=== PATIENT | male | born 1995 | race Caucasian/White ===

== ENCOUNTER 2016-07-31 01:26 | Inpatient (IN) ==
[2016-07-31] MEDS ORDERED: hydrOXYzine pamoate 25 MG CAPSULE PO PRN (01:34)
[2016-07-31] MEDS ORDERED: Haloperidol Lactate 5 MG/ML VIAL IM PRN (01:34)
[2016-07-31] MEDS ORDERED: *HR* LORazepam 1 MG TABLET PO PRN (01:34)
[2016-07-31] MEDS ORDERED: Acetaminophen 325 MG TABLET PO PRN (01:34)
[2016-07-31] MEDS ORDERED: Mag Hydrox/Al Hydrox/Simeth 30 ML UDC PO PRN (01:34)
[2016-07-31] MEDS ORDERED: MOM Conc 10 ML UD.LIQ PO PRN (01:34)
[2016-07-31] MEDS ORDERED: *HR* LORazepam 2 MG/ML VIAL IM PRN (01:34)
[2016-07-31] MEDS ORDERED: FLUoxetine 20 MG CAPSULE PO SCH (09:00)
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
[2016-07-31] MEDS: Gabapentin 300 MG CAPSULE PO SCH ×2 (15:17→20:10)
[2016-08-01] MEDS: FLUoxetine HCl 10 MG CAPSULE PO SCH (08:36)
[2016-08-01] MEDS: Gabapentin 300 MG CAPSULE PO SCH ×3 (08:36→21:11)
[2016-08-02] MEDS: Gabapentin 300 MG CAPSULE PO SCH ×3 (08:56→20:57)
[2016-08-02] MEDS: FLUoxetine HCl 10 MG CAPSULE PO SCH (08:56)
--- NOTE | 2016-08-02 10:34 | Psychiatry Progress Note ---
Date of Encounter: 08/01/16 Time of Encounter: 15:30 Subjective Interval history: Patient was seen for follow-up, nursing reports were reviewed. Patient is reported isolating, seclusive and concerned about seeing his daughter. He is reporting improved sleep some anxiety and denies suicidal ideation. He is tolerating medication and denies any side effects. Review of Systems Psychiatric: Reports: anxiety Objective: Exam Patient orientation: Yes Person, Yes Time, Yes Place Level of alertness: Alert Patient appearance: Appropriate, Well Groomed Behavior: calm, cooperative Psychomotor activity: Slowed Eye contact: Maintains Eye Contact Mood description: Depressed Affect description: constricted, dysphoric Speech pattern: Normal rate, Normal rhythm, Normal tone Speech volume: Soft/Quiet Thought process: Intact, Logical, [place] Perceptual disturbances: No Auditory hallucinations, No Visual hallucinations Judgment: Limited Insight: Minimal Results - Vital Signs Vital Signs: Temp Pulse Resp BP 98.0 F 65 16 118/62 08/02/16 09:00 08/02/16 09:00 08/02/16 09:00 08/02/16 09:00 Assessment and Plan (1) Depressive disorder Current visit: No Status: Chronic Plan: Continue hospitalization, Encourage participation in unit milieu, Group Therapy, Monitor sleep Risks, benefits, side effects, alternatives discussed w /pt: Yes Patient agreeable to treatment: Yes Consult Discharge Plan - Plan Referrals: [facility] [place] [Outside] - 08/05/16 8:00 am (The above appointment is with Gay Luke, psychiatric prescriber. Your case management rn, Shari Jensen, is out until the end of August. When you see Gay Luke on , you will be given a new case management rn to see until Shari returns to the office.)
--- NOTE | 2016-08-02 15:47 | Psychiatry Progress Note ---
Date of Encounter: 08/02/16 Time of Encounter: 14:30 Subjective Interval history: Patient was seen for follow-up, nursing staff reported she is doing well he denies suicidal ideation and auditory medications he continues to be concerned about not seeing his daughter and is planning to take action in order for him to see his daughter or have regular visitation. He is taking his medication as prescribed any side effects and believe it is very helpful. Review of Systems Psychiatric: Reports: anxiety, mood swings. Denies: suicidal ideation, auditory hallucinations Objective: Exam Patient orientation: Yes Person, Yes Time, Yes Place Level of alertness: Alert Patient appearance: Appropriate, Well Groomed Behavior: calm, cooperative, anxious Psychomotor activity: Normal Eye contact: Maintains Eye Contact Mood description: Depressed Affect description: constricted, dysphoric Speech pattern: Normal rate, Normal rhythm, Normal tone Speech volume: Soft/Quiet Thought process: Intact, Logical, [place] Thought content: No Suicidal ideation Perceptual disturbances: No Auditory hallucinations, No Visual hallucinations Judgment: Fair Insight: Partial Results - Vital Signs Vital Signs: Temp Pulse Resp BP 98.0 F 65 16 118/62 08/02/16 09:00 08/02/16 09:00 08/02/16 09:00 08/02/16 09:00 Assessment and Plan (1) Depressive disorder Current visit: No Status: Acute Plan: Continue hospitalization, Encourage participation in unit milieu, Group Therapy, Monitor sleep Risks, benefits, side effects, alternatives discussed w /pt: Yes Patient agreeable to treatment: Yes Consult Discharge Plan - Plan Referrals: [facility] [place] [Outside] - 08/05/16 8:00 am (The above appointment is with Gay Luke, psychiatric prescriber. Your wrapper caser, Shari Jensen, is out until the end of August. When you see Gay Luke on , you will be given a new wrapper caser to see until Shari returns to the office.)
[2016-08-03 09:08] VITALS: BP 116/60
[2016-08-03] MEDS: Gabapentin 300 MG CAPSULE PO SCH ×2 (09:14→15:01)
[2016-08-03] MEDS: FLUoxetine HCl 10 MG CAPSULE PO SCH (09:14)
--- NOTE | 2016-08-03 11:07 | Discharge Summary ---
Date of Encounter: 08/03/16 Time of Encounter: 10:57 Diagnosis - Discharge Diagnosis (1) Depressive disorder Status: Acute Medications - Discharge Medications Prescriptions: Gabapentin [Neurontin] 600 mg PO TID #90 capsule FLUoxetine HCl [Prozac] 20 mg PO DAILY #30 capsule 06/08/16 [Rx] Quetiapine Fumarate [Seroquel] 200 mg PO HS #60 tablet 06/08/16 [Rx] Gabapentin [Neurontin] 600 mg PO TID #90 capsule 08/03/16 [Rx] Allergies No Known Allergies Allergy (Verified 07/04/16 21:40) Provider Date of admission: 07/31/16 01:26 Primary care physician: PCP NO Discharging clinician: Jarod Herrera Assessment and Plan - Patient/Caregiver Discharge Instructions Activity: resume usual activities as tolerated Diet: regular diet - Follow up Plan Follow up with: [facility] [place] [Outside] - 08/05/16 8:00 am (The above appointment is with Gay Luke, psychiatric prescriber. Your case sealer, Shari Jensen, is out until the end of August. When you see Gay Luke on , you will be given a new case sealer to see until Shari returns to the office.) Overall status at discharge: Stable Disposition: Home, Self-Care Hospital Course Hospital course: Mr. Deal is a 21 year old male was admitted for evaluation of depression and suicidal ideation. Patient reported depressed mood and poor sleep mood swings crying episodes feeling of hopelessness. Patient had history of treatment and hospitalization prior [facility]. On admission patient medication was started including Prozac 30 mg Seroquel 200 mg and Neurontin 600 mg 3 times daily patient tolerated medication was out any side effects and reported improved sleep more improved became less depressed and denied any suicidal ideation or intent to self-harm. Prior to discharge patient displayed stable affect stable NO suicidal ideation, no hallucinations and compliance with treatment plan. - Time Spent with Patient Total time spent providing and/or coordinating discharge services: Less than 30 minutes Quality - Multiple Antipsychotics Patient discharged on 2 or more antipsychotic medications: No Procedures - Procedures Procedures: Medication Management, Crisis Stabilization, Supportive Therapy, Group Therapy, Psychoeducational Therapy Mental Status Exam - Mental Status Exam Patient orientation: Yes Person, Yes Time, Yes Place Level of alertness: Alert Patient appearance: Appropriate, Well Groomed Behavior: calm, cooperative, anxious Psychomotor activity: Normal Eye contact: Maintains Eye Contact Mood description: Depressed Affect description: congruent with mood Speech pattern: Normal rate, Normal rhythm, Normal tone Speech Volume: Soft/Quiet Thought process: Intact, Logical, [place] Thought Content: No Suicidal ideation, No Homicidal ideation Perceptual Disturbances: No Auditory hallucinations, No Visual hallucinations Judgment: Good Insight: Partial
[2016-08-03] MEDS ORDERED: FLU VACC QS2016-17 36MOS UP/PF 0.5 ML SYRINGE IM ONE (11:46)
== END 2016-08-03 15:00 | disposition home or self-care (01) | DRG 754 ==
LOC: 1ANU 01:26 → SUATTDRO 01:26
PROVIDERS: ADMIT Psychiatry & Neurology Psychiatry; ATTEND Psychiatry & Neurology Psychiatry